=== PATIENT | female | born 1960 | race Caucasian/White ===

== ENCOUNTER 2017-11-05 19:24 | Inpatient (IN) | payer MEDICARE, MEDICAID ==
[~2017-11-05] VITALS: Ht 162.6 cm; Wt 81.7 kg
[~2017-11-05 19:24] MED LIST: CARB200T4 PO; CITA20TA5 PO; DIAZ5TAB PO; IBUP-1223 PO; LEVE100S PO; LEVO25TA4 PO; QUET200T PO; QUET25TA5 PO; SULF1TAB24 PO; ZIPR60CA2 PO
[2017-11-05] MEDS ORDERED: ALBUTEROL/IPRATROPIUM 2.5MG/0.5MG, 3 ML ONE (19:46)
[2017-11-05] MEDS ORDERED: SODIUM CHLORIDE FLUSH 10ML SYR IVF ONE (20:00)
[2017-11-05] MEDS ORDERED: SODIUM CHLORIDE 0.9% 1,000ML IVBOLUS ONE ×2 (20:00→21:00)
[2017-11-05] MEDS ORDERED: BACL20TA PO (20:23)
[2017-11-05] MEDS ORDERED: IBUP-1484 PO (20:24)
[2017-11-05] MEDS ORDERED: QUET50TA PO (20:24)
[2017-11-05 20:27] LABS: ASPARTATE AMINO TRANSFERASE 82 U/L (15-37); BLOOD UREA NITROGEN 30 mg/dL (7-18)
[2017-11-05 20:37] LABS: HEMATOCRIT 27.4 % (34.6-47.8); HEMOGLOBIN 9.1 g/dL (11.7-16.4); WHITE BLOOD COUNT 4.4 x10^3/uL (3.4-10)
[2017-11-05 20:38] LABS: DIFF TOTAL CELLS COUNTED 100 CELL DIFF
[2017-11-05 20:43] LABS: VERIFY COUNTS? YES
[2017-11-05 20:45] LABS: ANISOCYTOSIS 1+; HYPOCHROMIA 1+; LARGE PLATELETS 1+; OVALOCYTES 1+; TARGET CELLS 1+
[2017-11-05] MEDS ORDERED: VANCOMYCIN 1,400 MG in SODIUM CHLORIDE 0.9% 250 ML IV ONE (21:00)
[2017-11-05] MEDS ORDERED: CEFTRIAXONE PMX 1GM/50ML 50 ML IV ONE (21:00)
[2017-11-05] MEDS ORDERED: POTASSIUM CHLORIDE 40 MEQ in SODIUM CHLORIDE 0.9% 500 ML IV ONE (21:00)
[2017-11-05] MEDS ORDERED: VANCOMYCIN PER PHARMACY MC PRN ×2 (21:00→22:00)
[2017-11-05] MEDS ORDERED: CEFTRIAXONE PMX 1GM/50ML 50 ML ONE (21:19)
[2017-11-05] MEDS ORDERED: ACETAMINOPHEN 325 MG TABLET PO PRN (22:00)
[2017-11-05] MEDS ORDERED: BISACODYL 10 MG SUPP PR PRN (22:00)
[2017-11-05] MEDS ORDERED: ONDANSETRON 2MG/ML, 2ML IVPush PRN (22:00)
[2017-11-05] MEDS ORDERED: ENALAPRILAT 1.25 MG/ML, 2ML IVPush PRN (22:00)
[2017-11-05] MEDS ORDERED: ENOXAPARIN 40 MG/0.4 ML SQ SCH (22:00)
[2017-11-05] MEDS ORDERED: POLYETHYLENE GLYCOL 17 GM PACKET PO PRN (22:00)
[2017-11-05] MEDS ORDERED: DOCUSATE 100 MG CAPSULE PO PRN (22:00)
[2017-11-05 22:06] LABS: ABG COLLECTION SITE RIGHT RADIAL; COLLATERAL CIRCULATION TESTING NORMAL
[2017-11-05] MEDS: NOREPINEPHRINE 4 MG in SODIUM CHLORIDE 0.9% 246 ML IV PRN ×3 (23:00→23:49)
[2017-11-06] MEDS ORDERED: ETOMIDATE 20 MG/10 ML IVPush ONE
[2017-11-06] MEDS ORDERED: ROCURONIUM 10 MG/ML,10ML IVPush ONE
[2017-11-06] MEDS ORDERED: ENOXAPARIN 40 MG/0.4 ML ONE (00:05)
[2017-11-06] MEDS ORDERED: PIPERACILLIN/TAZO/PMX 3.375GM 50 ML ONE ×4 (00:05→15:41)
[2017-11-06] MEDS: PIPERACILLIN/TAZO/PMX 3.375GM 50 ML IV SCH ×4 (00:06→15:43)
[2017-11-06] MEDS: NOREPINEPHRINE 4 MG in SODIUM CHLORIDE 0.9% 246 ML IV PRN ×6 (00:13→19:20)
[2017-11-06] MEDS ORDERED: PHARMACOKINETIC MONITORING MC PRN ×2 (00:30→18:00)
[2017-11-06] MEDS: PROPOFOL 100 ML IV PRN ×5 (01:18→19:22)
[2017-11-06] MEDS ORDERED: MIDAZOLAM 1 MG/ML, 2ML IVPush ONE ×2 (01:30)
[2017-11-06] MEDS ORDERED: NS + 20MEQ KCL 1,000 ML IV ONE ×2 (02:58→09:36)
[2017-11-06 02:59] LABS: ABG COLLECTION SITE RIGHT RADIAL; COLLATERAL CIRCULATION TESTING NORMAL
[2017-11-06] MEDS: NS + 20MEQ KCL 1,000 ML IV SCH ×4 (03:00→18:36)
[2017-11-06] MEDS ORDERED: PROPOFOL 10 MG/ML, 100ML IV ONE (04:00)
[2017-11-06] MEDS ORDERED: MIDAZOLAM 1 MG/ML, 5ML ONE (04:00)
[2017-11-06] MEDS ORDERED: ETOMIDATE 40 MG/20 ML ONE (04:00)
[2017-11-06] MEDS ORDERED: ROCURONIUM 10MG/ML,5ML ONE (04:00)
[2017-11-06 07:24] LABS: BLOOD UREA NITROGEN 30 mg/dL (7-18); DIFF TOTAL CELLS COUNTED 100 CELL DIFF; HEMATOCRIT 28.7 % (34.6-47.8); HEMOGLOBIN 9.6 g/dL (11.7-16.4); WHITE BLOOD COUNT 3.6 x10^3/uL (3.4-10)
[2017-11-06 07:27] LABS: ASPARTATE AMINO TRANSFERASE 92 U/L (15-37)
[2017-11-06 07:42] LABS: VERIFY COUNTS? YES
[2017-11-06 07:43] LABS: ANISOCYTOSIS 1+
[2017-11-06 07:44] LABS: HYPOCHROMIA 1+
[2017-11-06 07:45] LABS: LARGE PLATELETS 1+; TARGET CELLS 1+
[2017-11-06] MEDS ORDERED: SODIUM CHLORIDE 0.9% 500 ML IV SCH (12:00)
[2017-11-06] MEDS: SODIUM CHLORIDE 0.9% 500 ML IV SCH ×2 (12:22→13:56)
[2017-11-06] MEDS ORDERED: PROPOFOL 100 ML IV ONE (14:09)
[2017-11-06 15:32] LABS: ABG COLLECTION SITE RIGHT BRACHIAL
[2017-11-06] MEDS ORDERED: LIDOCAINE-MPF 1%, 2ML ENDO PRN (17:00)
[2017-11-06] MEDS ORDERED: PHARMACY MAY ADJ FOR RENAL FX MC SCH (17:00)
[2017-11-06] MEDS ORDERED: FENTANYL PF 100 MCG/2ML IVPush PRN (17:00)
[2017-11-06] MEDS ORDERED: VASOPRESSIN 100 UNIT in SODIUM CHLORIDE 0.9% 495 ML IV PRN (17:00)
[2017-11-06] MEDS ORDERED: NOREPINEPHRINE 1 MG/ML, 4ML ONE (17:05)
[2017-11-06] MEDS ORDERED: PHENYLEPHRINE 10 MG in SODIUM CHLORIDE 0.9% 249 ML IV PRN ×2 (17:30→19:13)
[2017-11-06] MEDS: VANCOMYCIN 1,300 MG in SODIUM CHLORIDE 0.9% 250 ML IV SCH (17:48)
[2017-11-06] MEDS ORDERED: MAGNESIUM SULFATE PMX 2GM/50ML 50 ML IV ONE (18:00)
[2017-11-06] MEDS ORDERED: PHARMACOKINETIC CONSULTATION MC ONE (18:00)
[2017-11-06] MEDS ORDERED: MIDAZOLAM 1 MG/ML, 2ML IVPush PRN (18:00)
[2017-11-06] MEDS ORDERED: MICAFUNGIN 100 MG in SODIUM CHLORIDE 0.9% 100 ML IV SCH (18:30)
[2017-11-06] MEDS ORDERED: THIAMINE IV SCH (19:30)
[2017-11-06] MEDS ORDERED: SODIUM CHLORIDE 0.9% IV SCH (19:30)
[2017-11-06] MEDS ORDERED: FOLIC ACID IV SCH (19:30)
[2017-11-06] MEDS: NOREPINEPHRINE 8 MG in SODIUM CHLORIDE 0.9% 242 ML IV PRN (20:29)
[2017-11-06] MEDS ORDERED: PHENYLEPHRINE 20 MG in SODIUM CHLORIDE 0.9% 248 ML IV PRN (20:52)
[2017-11-06] MEDS ORDERED: SENNOSIDES 8.8 MG/5 ML ORAL SOL NG PRN (21:00)
[2017-11-06] MEDS ORDERED: SENNA/DOCUSATE TABLET NG PRN (21:00)
[2017-11-06] MEDS ORDERED: BISACODYL 10 MG SUPP PR PRN (21:00)
[2017-11-06] MEDS ORDERED: PIPERACILLIN/TAZO/PMX 3.375GM 50 ML IV SCH (21:30)
[2017-11-06] MEDS: PIPERACILLIN/TAZO 3.375 GM in SODIUM CHLORIDE 0.9% 50 ML IVPB SCH (22:07)
[2017-11-07] MEDS: ENOXAPARIN 40 MG/0.4 ML SQ SCH
[2017-11-07] MEDS: NS + 20MEQ KCL 1,000 ML IV SCH ×4 (00:27→18:50)
[2017-11-07] MEDS: THIAMINE 100 MG, FOLIC ACID 1 MG, MVI ADULT 10 ML in SODIUM CHLORIDE 0.9% 1,000 ML IV SCH (00:55)
[2017-11-07] MEDS: NOREPINEPHRINE 8 MG in SODIUM CHLORIDE 0.9% 242 ML IV PRN ×3 (01:23→19:12)
[2017-11-07] MEDS: PIPERACILLIN/TAZO 3.375 GM in SODIUM CHLORIDE 0.9% 50 ML IVPB SCH ×4 (03:38→21:26)
[2017-11-07 04:00] VITALS: BP 101/45
[2017-11-07 04:34] LABS: ABG COLLECTION SITE RIGHT RADIAL; COLLATERAL CIRCULATION TESTING NORMAL
[2017-11-07 04:50] LABS: HEMATOCRIT 29.5 % (34.6-47.8); HEMOGLOBIN 9.8 g/dL (11.7-16.4)
[2017-11-07 04:55] LABS: BLOOD UREA NITROGEN 34 mg/dL (7-18)
[2017-11-07 04:58] LABS: ASPARTATE AMINO TRANSFERASE 85 U/L (15-37)
[2017-11-07 05:13] LABS: DIFF TOTAL CELLS COUNTED 100 CELL DIFF
[2017-11-07 05:15] LABS: ANISOCYTOSIS 1+; HYPOCHROMIA 1+; VERIFY COUNTS? YES
[2017-11-07] MEDS ORDERED: DEXTROSE 50%, 50ML SYRINGE ONE (05:15)
[2017-11-07 05:16] LABS: LARGE PLATELETS 1+
[2017-11-07] MEDS ORDERED: DEXTROSE 50%, 50ML SYRINGE IVPush ONE (05:30)
[2017-11-07] MEDS: DEXTROSE 5% 1,000 ML IV SCH (05:30)
[2017-11-07] MEDS: VANCOMYCIN 1,300 MG in SODIUM CHLORIDE 0.9% 250 ML IV SCH ×2 (06:10→18:37)
[2017-11-07] MEDS: PROPOFOL 100 ML IV PRN ×3 (08:11→20:14)
[2017-11-07] MEDS ORDERED: LACTULOSE 20 GM/30 ML UDC NG PRN (09:00)
[2017-11-07] MEDS ORDERED: DIAZEPAM 5 MG/ML, 2ML IVPush SCH (10:00)
[2017-11-07] MEDS: POTASSIUM CHLORIDE 10% 40 MEQ/30 ML UDC PO SCH ×2 (10:56→20:55)
[2017-11-07] MEDS: FAMOTIDINE 20 MG/2 ML IVPush SCH ×2 (11:15→20:55)
[2017-11-07] MEDS: DIAZEPAM 5 MG/ML, 10ML VIAL IVPush SCH ×2 (12:01→18:37)
[2017-11-07] MEDS: IBUPROFEN 200 MG TABLET PO PRN ×2 (17:17→21:26)
[2017-11-07] MEDS ORDERED: ALBUTEROL/IPRATROPIUM 2.5MG/0.5MG, 3 ML ONE (18:16)
[2017-11-07] MEDS: ALBUTEROL/IPRATROPIUM 2.5MG/0.5MG, 3 ML NPPB SCH ×2 (18:28→23:46)
[2017-11-07 20:08] LABS: ABG COLLECTION SITE RIGHT RADIAL; COLLATERAL CIRCULATION TESTING NORMAL
[2017-11-08] MEDS: ENOXAPARIN 40 MG/0.4 ML SQ SCH (00:28)
[2017-11-08] MEDS: DIAZEPAM 5 MG/ML, 10ML VIAL IVPush SCH ×5 (00:28→23:16)
[2017-11-08] MEDS: DEXTROSE 5% 1,000 ML IV SCH (01:30)
[2017-11-08] MEDS ORDERED: AMIODARONE 900 MG in DEXTROSE 5% 482 ML IV PRN (02:00)
[2017-11-08] MEDS ORDERED: AMIODARONE 150 MG in DEXTROSE 5% 100 ML IV ONE (02:00)
[2017-11-08] MEDS: THIAMINE 100 MG, FOLIC ACID 1 MG, MVI ADULT 10 ML in SODIUM CHLORIDE 0.9% 1,000 ML IV SCH (02:07)
[2017-11-08] MEDS: NOREPINEPHRINE 8 MG in SODIUM CHLORIDE 0.9% 242 ML IV PRN ×2 (02:09→21:40)
[2017-11-08] MEDS ORDERED: FILTER 0.22 MICRON IV PRN (02:30)
[2017-11-08] MEDS: NS + 20MEQ KCL 1,000 ML IV SCH (03:07)
[2017-11-08] MEDS: ALBUTEROL/IPRATROPIUM 2.5MG/0.5MG, 3 ML NPPB SCH ×6 (03:07→22:46)
[2017-11-08 03:45] LABS: HEMATOCRIT 30.9 % (34.6-47.8); WHITE BLOOD COUNT 37.6 x10^3/uL (3.4-10)
[2017-11-08] MEDS: PIPERACILLIN/TAZO 3.375 GM in SODIUM CHLORIDE 0.9% 50 ML IVPB SCH ×4 (03:49→21:40)
[2017-11-08 03:54] LABS: BLOOD UREA NITROGEN 41 mg/dL (7-18)
[2017-11-08 03:58] LABS: HIV 1&2 ANTIBODY SCREEN Nonreactive (Nonreactive); HIV-1 p24 ANTIGEN Nonreactive (Nonreactive)
[2017-11-08 04:00] VITALS: BP 108/63
[2017-11-08 04:54] LABS: ABG COLLECTION SITE RIGHT RADIAL; COLLATERAL CIRCULATION TESTING NORMAL
[2017-11-08 04:56] LABS: DIFF TOTAL CELLS COUNTED 100 CELL DIFF
[2017-11-08 05:00] LABS: ANISOCYTOSIS 1+; HYPOCHROMIA 1+; VERIFY COUNTS? YES
[2017-11-08 05:02] LABS: LARGE PLATELETS 1+
[2017-11-08] MEDS: PROPOFOL 100 ML IV PRN ×2 (05:16→15:28)
[2017-11-08] MEDS: SODIUM BICARBONATE 8.4% 150 MEQ in DEXTROSE 5% 1,000 ML IV SCH ×2 (08:14→17:23)
[2017-11-08] MEDS: FAMOTIDINE 20 MG/2 ML IVPush SCH ×2 (08:24→20:04)
[2017-11-08] MEDS: D5%-0.9% NACL 1,000 ML IV SCH ×2 (08:29→21:40)
[2017-11-08 09:39] LABS: ABG COLLECTION SITE RIGHT RADIAL; COLLATERAL CIRCULATION TESTING NORMAL
[2017-11-08 09:40] LABS: FIO2 100 %
[2017-11-08 16:46] LABS: ABG COLLECTION SITE RIGHT RADIAL; COLLATERAL CIRCULATION TESTING NORMAL
[2017-11-08] MEDS ORDERED: HEPARIN 25,000 UNITS/500ML PMX 500 ML IV PRN (17:00)
[2017-11-08] MEDS ORDERED: SODIUM CHLORIDE 0.9% 1,000ML IVBOLUS ONE (17:00)
[2017-11-08] MEDS ORDERED: HEPARIN 5,000 UNITS/ML, 1ML IV ONE (17:00)
[2017-11-08] MEDS ORDERED: HEPARIN 5,000 UNITS/ML, 1ML IV PRN (17:00)
[2017-11-09] MEDS: THIAMINE 100 MG, FOLIC ACID 1 MG, MVI ADULT 10 ML in SODIUM CHLORIDE 0.9% 1,000 ML IV SCH (01:27)
[2017-11-09] MEDS: NOREPINEPHRINE 8 MG in SODIUM CHLORIDE 0.9% 242 ML IV PRN (01:28)
[2017-11-09] MEDS: ALBUTEROL/IPRATROPIUM 2.5MG/0.5MG, 3 ML NPPB SCH (03:00)
[2017-11-09] MEDS: PIPERACILLIN/TAZO 3.375 GM in SODIUM CHLORIDE 0.9% 50 ML IVPB SCH (03:57)
[2017-11-09] MEDS: D5%-0.9% NACL 1,000 ML IV SCH (03:59)
[2017-11-09] MEDS ORDERED: ALTEPLASE 1 MG/ML ONE (04:08)
[2017-11-09] MEDS ORDERED: ALTEPLASE 100 MG in BAG 1 EACH IV ONE (04:30)
[2017-11-09] MEDS ORDERED: EPINEPHRINE SYRINGE 0.1 MG/ML, 10ML ONE ×2 (04:54→14:00)
[2017-11-09] MEDS ORDERED: CODE BLUE RESPONSE XX ONE (05:00)
[2017-11-09] MEDS ORDERED: SODIUM BICARBONATE 8.4% 150 MEQ in DEXTROSE 5% 1,000 ML IV SCH (08:00)
[2017-11-09] MEDS ORDERED: VASOPRESSIN 100 UNIT in SODIUM CHLORIDE 0.9% 495 ML IV PRN (17:00)
== END 2017-11-09 04:32 | disposition expired | DRG 871 ==
LOC: ED 21:46 → EDIP 21:51 → ED 23:02 → ICU 11-06 16:26
PROVIDERS: ADMIT Hospitalist; ATTEND Hospitalist
PROC: 02HV33Z Insertion of Infusion Device into Superior Vena Cava, Percutaneous Approach (ICD-10-PCS; principal; 2017-11-05)
PROC: 5A1945Z Respiratory Ventilation, 24-96 Consecutive Hours (ICD-10-PCS; 2017-11-05)
PROC: 0BH17EZ Insertion of Endotracheal Airway into Trachea, Via Natural or Artificial Opening (ICD-10-PCS; 2017-11-05)
PROC: 0T9B70Z Drainage of Bladder with Drainage Device, Via Natural or Artificial Opening (ICD-10-PCS; 2017-11-06)
DX: A40.3 Sepsis due to Streptococcus pneumoniae (principal); E43 Unspecified severe protein-calorie malnutrition; J96.01 Acute respiratory failure with hypoxia; R65.21 Severe sepsis with septic shock; Z99.11 Dependence on respirator [ventilator] status; G93.40 Encephalopathy, unspecified; J18.1 Lobar pneumonia, unspecified organism; K56.7 Ileus, unspecified; E87.2 Acidosis; E87.1 Hypo-osmolality and hyponatremia; D64.9 Anemia, unspecified; E03.9 Hypothyroidism, unspecified; E87.6 Hypokalemia; F12.90 Cannabis use, unspecified, uncomplicated; F15.10 Other stimulant abuse, uncomplicated; F41.9 Anxiety disorder, unspecified; F17.210 Nicotine dependence, cigarettes, uncomplicated; F31.9 Bipolar disorder, unspecified; G40.909 Epilepsy, unspecified, not intractable, without status epilepticus; Z68.30 Body mass index [BMI] 30.0-30.9, adult
CPT/HCPCS: 31500; 36415; 36556; 36600; 51702; 71010; 71250; 74000; 74176; 80048; 80053; 80202; 81001; 82533; 82803; 82805; 82962; 83605; 83690; 83735; 84132; 84145; 84443; 84478; 85025; 85520; 85610; 85730; 86480; 86703; 86788; 86789; 87040; 87070; 87077; 87081; 87086; 87181; 87184; 87205; 87899; 92950; 93005; 93922; 93925; 94002; 94003; 94640; 94667; 94668; 99285; J0696; J1644; J1650; J2248; J2250; J2543; J2704; J2997; J3360; J3370; J3411; J3480; J7042; J7070; J7620; G0435; J0282; J2370; J3475; J7030; J7040; J7050; J7060; S0028